=== PATIENT | female | born 1975 | race American Indian/Alaskan Native ===

== ENCOUNTER 2018-11-16 12:30 | Emergency (ER) | payer SELFPAY ==
[2018-11-16] MEDS ORDERED: TESSALON PERLES PO ONE ×2 (15:52→15:54)
[2018-11-16] MEDS ORDERED: TORADOL IM ONE (15:52)
[2018-11-16] MEDS ORDERED: TORADOL ONE (15:54)
--- NOTE | 2018-11-16 16:06 | Emergency Department Report ---
Minor Respiratory - HPI Chief Complaint: Upper Respiratory Infection Stated Complaint: FLU LIKE SYMPTOMS Duration: 4 Days Pain Location: Throat, Nose Severity: moderate Minor Respiratory: Yes Rhinorrhea, Yes Sore Throat, Yes Able to Tolerate Fluids, Yes Cough, Yes Sick Contacts, Yes Fever, No Ear Pain, No Hemoptysis, No Chest Pain, No Shortness of Breath Other History: This is a 43-year-old -[place] female who presents with flulike symptoms for the past 4 days. Patient reports cough, body aches, fever, diarrhea, and headache for the past couple of days. She is currently taking NyQuil, TheraFlu, and Tylenol with minimal improvement of symptoms. Patient states she wake up in cold sweats. She took a shower this morning and could barely get out of the shower which prompted her to come in for evaluation. She denies chest pain, shortness of breath, nausea or vomiting, ED Review of Systems ROS: Stated complaint: FLU LIKE SYMPTOMS Other details as noted in HPI Constitutional: fever. denies: chills ENT: throat pain, congestion. denies: ear pain Respiratory: cough. denies: shortness of breath, wheezing Cardiovascular: denies: chest pain, palpitations Gastrointestinal: diarrhea. denies: abdominal pain, nausea Musculoskeletal: myalgia Neurological: headache. 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 - Social History Smoking Status: Never Smoker Substance Use Type: None - Medications Home Medications: Home Medications Medication Instructions Recorded Confirmed Last Taken Type Benzonatate [Tessalon Perle] 100 mg PO TID PRN #30 capsule 11/16/18 Unknown Rx Fluticasone [Flonase] 1 spray NS QDAY #1 bottle 11/16/18 Unknown Rx Loratadine [Claritin] 10 mg PO DAILY #30 tablet 11/16/18 Unknown Rx Pseudoeph/Dm/Guaifen/Acetamin [Sm 1 each PO BID #14 capsule 11/16/18 Unknown Rx Day Time Cold-Flu Rel Sftgl] Minor Respiratory Exam - Exam General: Vital signs noted. No distress. Alert and acting appropriately. HEENT: Yes Pharyngeal Erythema (erythematous posterior pharynx, uvula midline without exudate or), Yes Moist Mucous Membranes, Yes Rhinorrhea (turbinates are mildly congested with clear discharge), No Pharyngeal Exudates, No Conjuctival Injection, No Frontal Tenderness, No Maxillary Tenderness Ear: Neither TM Bulge, Neither TM Erythema, Neither EAC Pain, Neither EAC Discharge Neck: Yes Supple, No Adenopathy Lungs: Yes Good Air Exchange, No Wheezes, No Ronchi, No Stridor, No Cough, No Labored Respirations, No Retractions, No Use of Accessory Muscles, No Other Abnormal Lung Sounds Heart: Yes Regular, No Murmur Abdomen: Yes Normal Bowel Sounds, No Tenderness, No Peritoneal Signs Skin: No Rash, No Edema Neurologic: Alert and oriented, no deficits. Musculoskeletal: Unremarkable. ED Course Vital Signs 11/16/18 12:36 Temperature 99.3 F Pulse Rate 100 H Respiratory 18 Rate Blood Pressure 131/83 O2 Sat by Pulse 95 Oximetry ED Medical Decision Making - Medical Decision Making 43 y.o. female that presents with flu like symptoms. Patient examined by me and stable. No distress noted. Vitals normal. Findings are susceptible of influenza. Will treat with supportive therapy for viral syndrome. Start benzonatate, flonase, pseudoephedrine, and claritin. Discharged home stable. Encouraged to do supportive care for URI. Follow up with Primary Care Provider in 2-3 days. Critical care attestation.: If time is entered above; I have spent that time in minutes in the direct care of this critically ill patient, excluding procedure time. ED Disposition Clinical Impression: Flu-like symptoms, Viral syndrome Disposition: - TO HOME OR SELFCARE Is pt being admited?: No Does the pt Need Aspirin: No Condition: Stable Instructions: Influenza (ED), Viral Syndrome (ED), Cold Symptoms (ED) Additional Instructions: Increase fluid intake and rest. Wash hands frequently. Continue taking Tylenol or ibuprofen to control fever. F/U with Primary Care Provider. Return to ER if fever, SOB, or difficulty breathing after 48 hours of supportive care. Prescriptions: Benzonatate [Tessalon Perle] 100 mg PO TID PRN #30 capsule PRN Reason: Cough Fluticasone [Flonase] 1 spray NS QDAY #1 bottle Loratadine [Claritin] 10 mg PO DAILY #30 tablet Pseudoeph/Dm/Guaifen/Acetamin [Sm Day Time Cold-Flu Rel Sftgl] 1 each PO BID #14 capsule Referrals: [facility] [Outside] - 3-[address] [facility] [Outside] - 3-5 Days [facility] [Outside] - 3-5 Days Forms: Work/School Release Form(ED) Time of Disposition: 16:23
[2018-11-16 16:52] VITALS: BP 137/74
== END 2018-11-16 16:53 | disposition home or self-care (01) ==
LOC: ED 12:30
DX: J11.1 Influenza due to unidentified influenza virus with other respiratory manifestations (principal); B34.9 Viral infection, unspecified
CPT/HCPCS: 96372; 99282; J1885